=== PATIENT | male | born 1965 | race Caucasian/White ===

== ENCOUNTER 2023-04-18 20:16 | Emergency (ER) | payer OTHER, SELFPAY ==
[2023-04-18] MEDS ORDERED: Ketorolac Tromethamine 30 MG/ML VIAL ONE (21:58)
[2023-04-18] MEDS ORDERED: Lidocaine 1% MPF 2 ML VIAL ONE (23:36)
[2023-04-18] MEDS ORDERED: cefTRIAXone (ROCEPHIN) 500 MG VIAL ONE (23:36)
[2023-04-18] MEDS ORDERED: LevoFLOXacin 250 MG TAB ONE (23:41)
== END 2023-04-19 00:19 | disposition home or self-care (01) ==
LOC: ERS 20:16
DX: N45.1 Epididymitis (principal); F17.210 Nicotine dependence, cigarettes, uncomplicated
CPT/HCPCS: 76870; 93976; 96372; J0696; J1885